=== PATIENT | male | born 1955 | race Caucasian/White ===

== ENCOUNTER 2022-12-19 00:30 | Inpatient (IN) | payer BC ==
[2022-12-19] VITALS (10 sets, daily range): BP systolic 119–144; BP diastolic 92–110; PULSE 81–102; RESP 16–18; TEMP 97.2–99.5; O2SAT 95–98
[~2022-12-19] VITALS: Ht 167.6 cm; Wt 85.7 kg
[2022-12-19 02:11] LABS: BASOPHILS # (AUTO) 0.1 K/uL (0.00-0.22); BASOPHILS % (AUTO) 0.8 % (0.0-2.0); EOSINOPHILS # (AUTO) 0.3 K/uL (0-0.4); EOSINOPHILS % (AUTO) 3.9 % (0.0-4.0); HEMATOCRIT 48.5 % (36-52); HEMOGLOBIN 16.4 g/dL (12.0-18.0); LYMPHOCYTES # (AUTO) 1.1 K/uL (2.0-11.5); LYMPHOCYTES % (AUTO) 15.1 % (20.5-51.1); MEAN CORPUSCULAR HEMOGLOBIN 30 pg (27-31); MEAN CORPUSCULAR HGB CONC 34 g/dL (33-37); MEAN CORPUSCULAR VOLUME 89.3 fL (80-94); MONOCYTES % (AUTO) 12.9 % (1.7-9.3); NEUTROPHILS % (AUTO) 67.3 % (42.2-75.2); PLATELET COUNT (AUTO) 178 K/uL (140-450); RED BLOOD CELL COUNT(AUTO) 5.43 MIL/uL (4.20-6.10); RED CELL DISTRIBUTION WIDTH 13.9 % (11.6-13.7); WHITE BLOOD COUNT (AUTO) 7.4 K/uL (4.8-10.8)
[2022-12-19 02:27] LABS: ALANINE AMINOTRANSFERASE 18 U/L (12-78); ALBUMIN 3.4 g/dL (3.4-5.0); ALKALINE PHOSPHATASE 156 U/L (50-136); ASPARTATE AMINOTRANSFERASE 20 U/L (15-37); CALCIUM 8.4 mg/dL (8.5-10.1); CARBON DIOXIDE 29.6 mmol/L (21-32); CHLORIDE 100 mmol/L (98-107); CREATININE 1.2 mg/dL (0.6-1.3); GFR ARICAN-AMERICAN 77 mL/min (>90); GFR NON ARICAN-AMERICAN 64 mL/min (>90); GLUCOSE 144 mg/dL (74-106); POTASSIUM 3.6 mmol/L (3.5-5.1); SODIUM SERUM 137 mmol/L (136-145); TOTAL BILIRUBIN 0.7 mg/dL (0.0-1.0); TOTAL PROTEIN, SERUM 7.6 g/dL (6.4-8.2); UREA NITROGEN, BLOOD 17 mg/dL (7-18)
[2022-12-19 02:43] LABS: INR 0.99 (0.8-1.2); PROTHROMBIN TIME 10.4 secs (10.8-13.4)
[2022-12-19] MEDS ORDERED: ATOR40TA PO (03:41)
[2022-12-19] MEDS ORDERED: ASPI-1822 PO (03:41)
[2022-12-19] MEDS ORDERED: CYAN500T51 PO (03:45)
[2022-12-19] MEDS ORDERED: CHLO25TA33 PO (03:45)
[2022-12-19] MEDS ORDERED: VITA1TAB44 PO (03:46)
[2022-12-19] MEDS ORDERED: NIFE-184 PO (03:46)
[2022-12-19] MEDS ORDERED: NACL 0.9% 1,000 ML IV ONE (04:25)
[2022-12-19] MEDS ORDERED: MAG SULF 2000 MG/WATER PREMIX 50 ML IV PRN (08:00)
[2022-12-19] MEDS: VIT-B COMP/VIT-C/FOLIC ACID 1 TAB PO SCH (09:58)
[2022-12-19] MEDS: ATORVASTATIN 20 MG TAB PO SCH (09:58)
[2022-12-19] MEDS: NIFEdipine 30 MG TABER PO SCH (09:58)
[2022-12-19] MEDS: ASPIRIN 81 MG TAB.CHEW PO SCH (09:58)
[2022-12-19] MEDS ORDERED: MORPHINE SULFATE 2 MG/ML SYR IVP SCH (10:14)
[2022-12-19] MEDS ORDERED: ACETAMINOPHEN 325 MG TAB PO PRN (17:10)
[2022-12-19] MEDS ORDERED: POTASSIUM CHLORIDE 10 MEQ TABER PO PRN (17:10)
[2022-12-19] MEDS ORDERED: ONDANSETRON 4 MG/2 ML VIAL IVP PRN (17:10)
[2022-12-19] MEDS ORDERED: DOCUSATE SODIUM 100 MG GELCAP PO PRN (17:10)
[2022-12-20] VITALS: BP 137/97; PULSE 94; RESP 18; TEMP 97.9; O2SAT 98
[2022-12-20] MEDS: MORPHINE SULFATE 2 MG/ML SYR IVP PRN ×3 (00:02→12:24)
[2022-12-20 03:57] VITALS: PULSE 66
[2022-12-20 04:00] VITALS: BP 119/87; PULSE 73; RESP 16; TEMP 96.3; O2SAT 98
[2022-12-20 08:00] VITALS: BP 133/84; PULSE 68; PULSE 87; RESP 16; RESP 18; TEMP 97.9; O2SAT 96
[2022-12-20] MEDS ORDERED: ATORVASTATIN 20 MG TAB PO SCH (09:00)
[2022-12-20] MEDS ORDERED: NIFEdipine 30 MG TABER PO SCH (09:00)
[2022-12-20] MEDS ORDERED: VIT-B COMP/VIT-C/FOLIC ACID 1 TAB PO SCH (09:00)
[2022-12-20] MEDS ORDERED: ASPIRIN 81 MG TAB.CHEW PO SCH (09:00)
[2022-12-20] MEDS: ATORVASTATIN 20 MG TAB PO SCH (09:00)
[2022-12-20] MEDS: VIT-B COMP/VIT-C/FOLIC ACID 1 TAB PO SCH (09:08)
[2022-12-20] MEDS: NIFEdipine 30 MG TABER PO SCH (09:09)
[2022-12-20] MEDS: ASPIRIN 81 MG TAB.CHEW PO SCH (09:10)
[2022-12-20 12:00] VITALS: BP 130/91; PULSE 70; PULSE 87; RESP 18; TEMP 96.5; O2SAT 97
[2022-12-20 12:25] VITALS: BP 130/91; PULSE 87; RESP 18; TEMP 96.5
[2022-12-20] MEDS ORDERED: HYDROcodone/APAP 5/325 MG 1 TAB TAB PO SCH (13:02)
[2022-12-20] MEDS ORDERED: NAPR-1703 PO (14:59)
== END 2022-12-20 15:00 | disposition home or self-care (01) | DRG 282 ==
LOC: MED 00:30 → MTU 04:32
PROVIDERS: ADMIT Family Medicine; ATTEND Family Medicine
PROC: 0HQ0XZZ Repair Scalp Skin, External Approach (ICD-10-PCS; principal; 2022-12-19)
PROC: 3E0234Z Introduction of Serum, Toxoid and Vaccine into Muscle, Percutaneous Approach (ICD-10-PCS; 2022-12-19)
DX: R55 Syncope and collapse (principal); I21.A1 Myocardial infarction type 2; S01.01XA Laceration without foreign body of scalp, initial encounter; R73.9 Hyperglycemia, unspecified; E78.5 Hyperlipidemia, unspecified; I10 Essential (primary) hypertension; W18.39XA Other fall on same level, initial encounter; Z86.73 Personal history of transient ischemic attack (TIA), and cerebral infarction without residual deficits; Z79.82 Long term (current) use of aspirin; Z79.899 Other long term (current) drug therapy; Y93.89 Activity, other specified; Y92.89 Other specified places as the place of occurrence of the external cause; Y99.8 Other external cause status; I11.9 Hypertensive heart disease without heart failure
CPT/HCPCS: 36415; 70450; 71045; 80053; 84484; 85025; 85610; 87081; 90715; 93005; 99285; J2270; Q0092

== ENCOUNTER 2024-02-28 11:13 | Emergency (ER) | payer BC ==
[~2024-02-28] VITALS: Ht 165.1 cm; Wt 72.6 kg
[~2024-02-28 11:13] MED LIST: ASPI-1822 PO; ATOR40TA PO; CHLO25TA33 PO; CYAN500T51 PO; NAPR-1703 PO; NIFE-184 PO; VITA1TAB44 PO
[2024-02-28 11:24] VITALS: BP 135/93; PULSE 77; RESP 18; TEMP 97; O2SAT 97
[2024-02-28 11:41] VITALS: BP 135/93; PULSE 77; RESP 18; TEMP 97
[2024-02-28 11:57] VITALS: O2SAT 97
[2024-02-28] MEDS: IBUPROFEN 400 MG TAB PO ONE (12:37)
[2024-02-28] MEDS: LORazepam 1 MG TAB PO ONE (12:41)
[2024-02-28] MEDS ORDERED: NAPR-1704 PO (13:30)
== END 2024-02-28 13:36 | disposition home or self-care (01) ==
LOC: MED 11:13
DX: S93.402A Sprain of unspecified ligament of left ankle, initial encounter (principal); I83.92 Asymptomatic varicose veins of left lower extremity; E11.9 Type 2 diabetes mellitus without complications; I10 Essential (primary) hypertension; Z86.73 Personal history of transient ischemic attack (TIA), and cerebral infarction without residual deficits; Z79.899 Other long term (current) drug therapy; W10.8XXA Fall (on) (from) other stairs and steps, initial encounter; Y93.89 Activity, other specified; Y92.89 Other specified places as the place of occurrence of the external cause; Y99.8 Other external cause status
CPT/HCPCS: 29515; 73610; 82948; 93970; 99284; Q0092